=== PATIENT | male | born 2000 | race African-American/Black ===

== ENCOUNTER 2018-07-08 20:41 | Emergency (ER) | payer OTHER ==
[2018-07-08 21:01] VITALS: BP 125/57
--- NOTE | 2018-07-08 21:40 | XRAY Report ---
Reason: R 3RD KNUCKLE PAIN/SWELLING Procedure Date: 07/08/2018 Accession Number: [id number] / [id number] Procedure: XR - Hand 3 View RT CPT Code: FULL RESULT: EXAM: RIGHT HAND RADIOGRAPHY EXAM DATE: 07/08/2018 09:30 PM. CLINICAL HISTORY: R 3RD KNUCKLE PAIN/SWELLING. COMPARISON: None. TECHNIQUE: 3 views. FINDINGS: Bones: Normal. No fractures or bone lesions. Joints: Normal. No subluxations. Soft Tissues: Mild soft tissue swelling. IMPRESSION: Soft tissue swelling. RADIA
--- NOTE | 2018-07-08 22:38 | ED Physician Documentation ---
PD HPI UPPER EXT INJURY - Stated complaint Stated Complaint: RT HAND PAIN - Chief complaint Chief Complaint: Ext Problem - History obtained from History obtained from: Patient - History of Present Illness Location: Right (He accidentally hits the back of his right hand on a door frame about 2 weeks ago and it got more swollen today.) Review of Systems Constitutional: denies: Fever, Chills GI: denies: Abdominal Pain, Nausea, Vomiting : reports: Reviewed and negative PD PAST MEDICAL HISTORY - Past Medical History Past Medical History: No Cardiovascular: None Respiratory: None Neuro: None Endocrine/Autoimmune: None GI: None : None HEENT: None Psych: None Musculoskeletal: None Derm: None - Past Surgical History Past Surgical History: Yes General: Appendectomy - Allergies Allergies/Adverse Reactions: Allergies Allergy/AdvReac Type Severity Reaction Status Date / Time No Known Drug Allergies Allergy Verified 07/08/18 21:00 - Social History Does the pt smoke?: Yes Smoking Status: Current every day smoker Does the pt drink ETOH?: Yes Does the pt have substance abuse?: No - Immunizations Immunizations are current?: Yes - POLST Patient has POLST: No PD ED PE NORMAL - Vitals Vital signs reviewed: Yes - General General: Alert and oriented X 3, No acute distress - Extremities Extremities: Other (There is swelling of the dorsal third MCP with a fluidlike consistency. There is no tenderness or limited range of motion.) - Neuro Neuro: Alert and oriented X 3, Normal speech Results - Vitals Vitals: Vital Signs - 24 hr 07/08/18 20:56 Temperature 36.8 C Heart Rate 64 Respiratory 17 Rate Blood Pressure 125/57 L O2 Saturation 100 Oxygen O2 Source Room air - Rads (name of study) 3 views of the right hand Radiology: EMP read contemporaneously (No fracture) Departure - Departure Disposition: 01 Home, Self Care Clinical Impression: Contusion of right hand Qualifiers: Encounter type: initial encounter Qualified Code(s): S60.221A - Contusion of right hand, initial encounter Condition: Good Record reviewed to determine appropriate education?: Yes Comments: Stop popping your knuckles. If is not better in a week or so [place].
== END 2018-07-08 22:48 | disposition home or self-care (01) ==
LOC: ED 20:41
DX: S60.221A Contusion of right hand, initial encounter (principal); W22.09XA Striking against other stationary object, initial encounter; F17.200 Nicotine dependence, unspecified, uncomplicated
CPT/HCPCS: 99283

== ENCOUNTER 2020-01-14 19:35 | Emergency (ER) | payer OTHER ==
--- NOTE | 2020-01-14 20:10 | ED Physician Documentation ---
History of Present Illness - Stated complaint Stated Complaint: FINGER PX, LEFT MIDDLE - Chief complaint Chief Complaint: Ext Problem - History obtained from History obtained from: Patient - History of Present Illness Timing: Prior to arrival - Additonal information Additional information: 19-year-old male presents to the emergency department for acute left finger pain. He reports that a number of times over the last week he has jammed his finger while playing football. He reports that the football hits his finger when he attempts to catch it. Most recent injury occurred 4 days ago. He has swelling and pain at the PIP joint. Also reports that he fractured this finger when playing high school football about 5 years ago Review of Systems Constitutional: reports: Reviewed and negative Eyes: reports: Reviewed and negative Nose: reports: Reviewed and negative Cardiac: reports: Reviewed and negative Respiratory: reports: Reviewed and negative Skin: reports: Reviewed and negative Musculoskeletal: reports: Joint pain, Joint swelling (left middle finger) PD PAST MEDICAL HISTORY - Past Medical History Past Medical History: No Cardiovascular: None Respiratory: None Neuro: None Endocrine/Autoimmune: None GI: None : None HEENT: None Psych: None Musculoskeletal: None Derm: None - Past Surgical History Past Surgical History: Yes General: Appendectomy - Present Medications Home Medications: Ambulatory Orders Medication Instructions Recorded Confirmed Ibuprofen [Motrin] 600 mg PO Q6H PRN #30 tab 01/14/20 - Allergies Allergies/Adverse Reactions: Allergies Allergy/AdvReac Type Severity Reaction Status Date / Time No Known Drug Allergies Allergy Verified 01/14/20 19:46 - Social History Does the pt smoke?: No Smoking Status: Never smoker Does the pt drink ETOH?: Yes Does the pt have substance abuse?: No - Immunizations Immunizations are current?: Yes - POLST Patient has POLST: No PD ED PE NORMAL - General General: Alert and oriented X 3, No acute distress, Well developed/nourished - Cardiac Cardiac: RRR, No murmur - Respiratory Respiratory: Clear bilaterally - Extremities Extremities: No deformity. No: No tenderness to palpate (Swelling without erythema at the PIP joint of left middle finger. Full range of motion extension and flexion against resistance though painful. No deformity. 2+ radial pulse left wrist) Results - Vitals Vitals: Vital Signs - 24 hr 01/14/20 19:39 Temperature 36.7 C Heart Rate 58 L Respiratory 16 Rate Blood Pressure 118/57 L O2 Saturation 99 Oxygen O2 Source Room air - Rads (name of study) left finger Radiology: Final report received (Minimally displaced volar plate fracture of the distal phalanx of the third digit with articular surface extension of the DIP) PD MEDICAL DECISION MAKING - ED course Complexity details: reviewed results, considered differential, d/w patient ED course: -year-old male here with acute left finger pain after repeatedly jamming the left middle finger while playing football. Though he has swelling at the PIP joint the x-ray does show that he is got a minimally displaced volar plate fracture of the DIP joint. Patient was placed into a long finger splint and advised ibuprofen or Tylenol for analgesia. Referral to orthopedics for follow- up. Departure - Departure Disposition: 01 Home, Self Care Clinical Impression: Fracture, finger, distal phalanx Qualifiers: Encounter type: initial encounter Finger: middle finger Fracture type: closed Fracture alignment: nondisplaced Laterality: left Qualified Code(s): S62.663A - Nondisplaced fracture of distal phalanx of left middle finger, initial encounter for closed fracture Condition: Stable Record reviewed to determine appropriate education?: Yes Instructions: ED Fx Finger Closed Ch Follow-Up: Josh Stein MD [Provider Admit Priv/Credential] - Prescriptions: Ibuprofen [Motrin] 600 mg PO Q6H PRN #30 tab PRN Reason: Pain Comments: Abdiel I hope that your finger feels better soon. Unfortunately the x-ray shows a: " minimally displaced volar plate fracture of the distal fail next of the third digit." These please wear your aluminum finger splint at all times when out of bed. I would recommend that you avoid contact sports like football or basketball until this fracture fully heals. I have also recommended follow-up for you to orthopedics. I would like you to be seen by them within the next 4 weeks. It is likely they will re-x-ray the finger to further evaluate healing.
--- NOTE | 2020-01-14 20:44 | XRAY Report ---
PROCEDURE: Finger(s) LT INDICATIONS: jammed middle finger TECHNIQUE: AP hand, 2 views of the third finger(s) acquired. COMPARISON: None FINDINGS: Bones: Minimally displaced volar plate fracture of the distal phalanx of the third digit with articul ar surface extension to the distal interphalangeal joint. No suspicious bony lesions. Soft tissues: No suspicious soft tissue calcifications. IMPRESSION: Third digit fracture as above. Reviewed by: Swati Mckeon MD on 01/14/2020 8:43 PM PDT Approved by: Swati Mckeon MD on 01/14/2020 8:43 PM PDT Station ID: [id number]
[2020-01-14 21:16] VITALS: BP 120/63
== END 2020-01-14 21:16 | disposition home or self-care (01) ==
LOC: ED 19:35
DX: S62.633A Displaced fracture of distal phalanx of left middle finger, initial encounter for closed fracture (principal); W21.01XA Struck by football, initial encounter; Y93.61 Activity, american tackle football
CPT/HCPCS: 73140; 99282; 99283

== ENCOUNTER 2020-04-01 11:55 | Emergency (ER) | payer OTHER ==
--- NOTE | 2020-04-01 12:41 | ED Physician Documentation ---
History of Present Illness - Stated complaint Stated Complaint: DIZZY,SORE THROAT, - Chief complaint Chief Complaint: General - History obtained from History obtained from: Patient - Additonal information Additional information: 19-year-old male sent to the emergency department by [facility] to obtain COVID-19 screening. For much of the last week he has had a sore throat somewhat fatigued and dizzy. He has no cough or fever. No tonsillar exudate. No loss of taste or smell. No nausea vomiting diarrhea or dysuria. He has had no fainting episodes. Denies any headache. He denies any COVID-19 contacts. He denies any pertinent past medical history and is not taking any scheduled medications. Review of Systems Constitutional: reports: Fatigue. denies: Fever, Chills, Myalgias Eyes: denies: Loss of vision, Decreased vision, Photophobia Ears: reports: Reviewed and negative Nose: denies: Rhinorrhea / runny nose, Congestion, Foreign Body Throat: reports: Sore throat. denies: Oral lesions / sores, Swollen tonsils Cardiac: denies: Chest pain / pressure, Palpitations Respiratory: denies: Dyspnea, Cough GI: reports: Reviewed and negative : reports: Reviewed and negative Skin: reports: Reviewed and negative Musculoskeletal: reports: Reviewed and negative PD PAST MEDICAL HISTORY - Past Medical History Cardiovascular: None Respiratory: None Neuro: None Endocrine/Autoimmune: None GI: None : None HEENT: None Psych: None Musculoskeletal: None Derm: None - Past Surgical History Past Surgical History: Yes General: Appendectomy - Present Medications Home Medications: Ambulatory Orders Medication Instructions Recorded Confirmed No Known Home Medications 04/01/20 04/01/20 - Allergies Allergies/Adverse Reactions: Allergies Allergy/AdvReac Type Severity Reaction Status Date / Time No Known Drug Allergies Allergy Verified 04/01/20 12:13 - Social History Does the pt smoke?: No Smoking Status: Never smoker Does the pt drink ETOH?: Yes Does the pt have substance abuse?: No - Immunizations Immunizations are current?: Yes - POLST Patient has POLST: No PD ED PE NORMAL - General General: Alert and oriented X 3, No acute distress - HEENT HEENT: PERRL - Neck Neck: Supple, no meningeal sign, No adenopathy, Other (Mild posterior oropharynx erythema without exudate. Uvula midline. No soft palate asymmetry.) - Cardiac Cardiac: RRR, No murmur - Respiratory Respiratory: No respiratory distress, Clear bilaterally - Abdomen Abdomen: Normal bowel sounds, Soft, Non tender - Back Back: No CVA TTP - Derm Derm: Normal color, Warm and dry, No rash - Extremities Extremities: No deformity, No tenderness to palpate, Normal ROM s pain - Neuro Neuro: Alert and oriented X 3 Eye Opening: Spontaneous Motor: Obeys Commands Verbal: Oriented GCS Score: 15 - Psych Psych: Normal mood Results - Vitals Vitals: Vital Signs - 24 hr 04/01/20 11:57 Temperature 36.5 C Heart Rate 75 Respiratory 16 Rate Blood Pressure 137/65 H O2 Saturation 97 Oxygen O2 Source Room air PD MEDICAL DECISION MAKING - ED course Complexity details: re-evaluated patient, considered differential ED course: 19-year-old male presents emergency department with about 1 week of fatigue sore throat mild myalgias. He has no fevers. [facility] requested that he come here for COVID-19 screening. Patient appears remarkably well. Does not meet [facility] criteria for strep testing or empiric treatment. He has no hypoxia and an oral normal cardiopulmonary exam. COVID-19 screening is pending. He was advised to remain in quarantine until results known Departure - Departure Disposition: 01 Home, Self Care Clinical Impression: Viral pharyngitis, Encounter for screening laboratory testing for COVID-19 virus Instructions: ED Pharyngitis Viral Comments: You have a Covid test pending. You need to self quarantine until the result is done and negative. Do not leave your house. Do not get near anybody. The results should be done in 48 to 72 hours. We will call with a positive result, the fastest way to get a negative result for confirmation though is to go to the hospital website at [email or web address], click on the my [employer] tab and sign up for the patient portal. If any friends or family get sick and would like to have a Covid test done, but do not have signs or symptoms that would necessitate being hospitalized, we encourage testing through our coronavirus swabbing station, call [phone] to schedule an appointment.
[2020-04-01 12:54] VITALS: BP 134/75
== END 2020-04-01 12:53 | disposition home or self-care (01) ==
LOC: ED 11:55
DX: J02.8 Acute pharyngitis due to other specified organisms (principal); B97.89 Other viral agents as the cause of diseases classified elsewhere; Z20.828 Contact with and (suspected) exposure to other viral communicable diseases
CPT/HCPCS: 99282; 99283

== ENCOUNTER 2021-09-24 22:56 | Outpatient (CLI) | payer OTHER | END 2021-09-24 22:57 | disposition critical access hospital (66) | LOC: EMS 22:56 | DX: S51.802A Unspecified open wound of left forearm, initial encounter (principal); S81.002A Unspecified open wound, left knee, initial encounter; S41.002A Unspecified open wound of left shoulder, initial encounter; S61.502A Unspecified open wound of left wrist, initial encounter; V28.4XXA Motorcycle driver injured in noncollision transport accident in traffic accident, initial encounter; Y92.414 Local residential or business street as the place of occurrence of the external cause | CPT/HCPCS: A0425; A0429 ==